=== PATIENT | female | born 1990 | race Caucasian/White ===

== ENCOUNTER 2018-12-09 06:42 | Inpatient (IN) | payer BC ==
[2018-12-09] VITALS (46 sets, daily range): BP systolic 96–145; BP diastolic 53–111; PULSE 74–136; TEMP 97.6–98.5
[~2018-12-09] VITALS: Ht 165.1 cm; Wt 79.1 kg
[~2018-12-09 06:42] MED LIST: MOTRIN 600600 MG/TAB PO; PERCOCET 325 MG1 TA2 PO; PRENATAL1 TA7 PO
--- NOTE | 2018-12-09 07:25 | NUR ---
Patient ambulatory to LR5 with significant other, changed into clean gown, FHR/TOCO monitors placed and explained. Patient states she was bonilla last night but they stopped and baby has been moving. Denies any vaginal bleeding or leaking of fluid. SVE-/-2 0745: IV started per Sebastian ODONNELL in left hand, blood drawn and to lab, LR infusing. Assessment completed and VSS. Consents gone over and signed and plan of care discussed. 0800: FHR reactive and pitocin started per protocol at 2mU.
[2018-12-09 08:12] LABS: HEMOGLOBIN 12.8 g/dl (12.5-16.0); MEAN CELL VOLUME 87 fl (80.0-100.0); MEAN CORPUSCULAR HEMOGLOBIN 30 pg (27.0-31.0); MEAN CORPUSCULAR HGB CONC 35 g/dl (33.0-37.0); MEAN PLATELET VOLUME 9.5 fl (7.4-10.4); PLATELET COUNT 287 K/mm3 (130-400); RED BLOOD COUNT 4.25 M/mm3 (4.10-5.30); REDCELL DISTRIBUTION WIDTH-CV 13.7 % (11.5-14.5)
[2018-12-09 08:44] LABS: BAND 1 % (0-10); LYMPHOCYTE 22 % (20.0-51.0); NEUTROPHILS 71 % (42.0-75.2)
[2018-12-09 08:45] LABS: PLATELET ESTIMATE NORMAL (NORMAL)
--- NOTE | 2018-12-09 08:50 | NUR ---
Dr Winters at bedside to assess patient and evaluate FHR strip 0853: SVE per physician 2-3/-2 and AROM done at this time with clear fluid noted. Dr. Winters informs patient she can have epidural when she wants. No new orders and will continue to monitor.
--- NOTE | 2018-12-09 09:10 | NUR ---
Patient sits up and FHR monitor tracing maternal heart rate. Off monitor to void. 0915: Patient back on monitor.
--- NOTE | 2018-12-09 10:00 | NUR ---
Patient requesting epidural and Elsie [employer] notified. Patient off monitor to void. 1027: Patient sits at edge of bed for placement of epidural. FHR difficult to trace due to maternal position. 1032: Elsie [employer] at bedside for procedure. 1039: Single shot given and patient tolerates well. 1043: Patient wedged left and getting comfortable. Will continue to monitor.
--- NOTE | 2018-12-09 11:30 | NUR ---
SVE-5/80/-2 and fetus's hand felt at this time. Sebastian ODONNELL SVE and feels hand. 1135: Dr. Winters called and notified of SVE. No new orders.
--- NOTE | 2018-12-09 12:10 | NUR ---
FHR baseline 130bpm and subtle late decelerations noted. Patient wedged right with peanut ball in place. 1219: Variable deceleration noted and returns to baseline. 1232: Dr. Winters at bedside to evaluate patient/FHR strip. SVE per physician /-2 and no hand felt at this time. Orders to continue to increase pitocin and will continue to monitor.
--- NOTE | 2018-12-09 13:42 | NUR ---
Subtle late decelerations noted at this time. 1348: SVE-5-6/80/-2 bloody show and patient repositioned. 1400: Subtle recurrent late decelerations noted, FHR moderate variability. 1420: Late decelerations continue and paient repositioned. 1430: FHR baseline 135bpm and decreasing to 120bpm for 80 seconds and returns to baseline. 1435: Patient wedged right.
--- NOTE | 2018-12-09 14:50 | NUR ---
SVE-7/90/-1 per Orville ODONNELL and back to right side.
--- NOTE | 2018-12-09 16:35 | NUR ---
SVE-10/100/-1 and clarke catheter removed. 1640: Patient begins to push with contractions per Dr. Winters orders. 1717: Dr. Winters called and notified that we are ready for delivery.
--- NOTE | 2018-12-09 18:10 | NUR ---
1730: Dr. Winters at bedside to evaluate patient/FHR strip. SVE done with next push. Patient set up for delivery and bed taken apart. Patient continues to push with contractions and Dr. Winters. 173: Spontaneous vaginal delivery of head followed by body, Dr. Winters bulb syringes infant and to patients abdomen. Fransico RN assumes care of . Dr. Winters begins to repair laceration. 174: Spontaneous vaginal delivery of placenta and pitocin started per protocol. Fundal massage done/firm/bleeding WNL. Patient repositioned and ice pack to perineum. Plan of care discussed and will continue to monitor.
--- NOTE | 2018-12-09 20:35 | NUR ---
Pt up to the bathroom with assistance. Pt able to void. Pericare done. Pt transferred to [facility] via wheelchair. Oriented to room, bed and call light within reach. Plan of care reviewed.
[2018-12-10 03:00] VITALS: BP 99/64; PULSE 80; TEMP 97.4
[2018-12-10 06:50] VITALS: BP 92/78; PULSE 89; TEMP 97.8
[2018-12-10] MEDS ORDERED: IBU600 MG PO (08:30)
--- NOTE | 2018-12-10 09:03 | NUR ---
Initial visit; Parents thanked for offering congratulations for the of their daughter and for thanking them for choosing [facility].
[2018-12-10 12:15] VITALS: BP 107/70; PULSE 86; TEMP 98.3
[2018-12-10 16:55] VITALS: BP 110/75; PULSE 85; TEMP 97.8
[2018-12-10 22:15] VITALS: BP 106/64; PULSE 81; TEMP 97.8
[2018-12-11 08:00] VITALS: BP 108/72; PULSE 85
--- NOTE | 2018-12-11 10:38 | NUR ---
Patient discharge education reviewed, patient states understanding, denies questions or concerns. patient escorted off unit with spouse and infant
== END 2018-12-11 10:25 | disposition home or self-care (01) | DRG 807 ==
LOC: LDR 06:42 → OB 20:46
PROVIDERS: ADMIT Obstetrics & Gynecology
PROC: 10E0XZZ Delivery of Products of Conception, External Approach (ICD-10-PCS; principal; 2018-12-09)
PROC: 10907ZC Drainage of Amniotic Fluid, Therapeutic from Products of Conception, Via Natural or Artificial Opening (ICD-10-PCS; 2018-12-09)
PROC: 0HQ9XZZ Repair Perineum Skin, External Approach (ICD-10-PCS; 2018-12-09)
DX: O70.0 First degree perineal laceration during delivery (principal); Z37.0 Single live birth; Z3A.39 39 weeks gestation of pregnancy; O99.344 Other mental disorders complicating childbirth; F41.9 Anxiety disorder, unspecified
CPT/HCPCS: J2590; J2795; J7120